=== PATIENT | male | born 1975 | race Caucasian/White ===

== ENCOUNTER 2017-08-25 21:18 | Emergency (ER) | payer BC ==
[~2017-08-25] VITALS: Ht 182.9 cm; Wt 105.3 kg
[2017-08-25 21:28] VITALS: Ht 182.9 cm; Wt 105.3 kg
[2017-08-25 23:01] VITALS: BP 130/80
== END 2017-08-25 23:01 | disposition home or self-care (01) ==
LOC: ED 21:18
DX: S61.011A Laceration without foreign body of right thumb without damage to nail, initial encounter (principal); W26.0XXA Contact with knife, initial encounter; Y92.000 Kitchen of unspecified non-institutional (private) residence as the place of occurrence of the external cause
CPT/HCPCS: J2001

== ENCOUNTER 2017-09-18 01:17 | Emergency (ER) | payer BC ==
[~2017-09-18] VITALS: Ht 182.9 cm; Wt 104.8 kg
[2017-09-18 02:41] LABS: CALCIUM 8.7 mg/dL (8.5-10.1); CARBON DIOXIDE 31.3 mmol/L (21-32); CHLORIDE SERUM 106 mmol/L (98-107); CREATININE SERUM 1.1 mg/dL (0.7-1.3); GFR1 > 60 mL/min; GLUCOSE SERUM 144 mg/dL (74-106); POTASSIUM SERUM 3.7 mmol/L (3.5-5.1); SODIUM SERUM 142 mmol/L (136-145)
[2017-09-18 02:46] LABS: ALBUMIN 3.9 g/dL (3.4-5.0); ALKALINE PHOSPHATASE 104 U/L (46-116); ALT/SGPT 29 U/L (16-63); AST/SGOT 19 U/L (15-37); BILIRUBIN TOTAL 0.2 mg/dL (0.20-1.00); TOTAL PROTEIN, SERUM 7.7 g/dL (6.4-8.2); URIC ACID 5.2 mg/dL (3.5-7.2)
[2017-09-18 02:47] LABS: BASOPHIL % 0.3 % (0-2); PLATELET COUNT 254 x10^3mcL (130-400); RED CELL DISTRIBUTION WIDTH 12.5 % (11.5-14.5)
[2017-09-18 04:41] VITALS: BP 130/74
== END 2017-09-18 04:41 | disposition home or self-care (01) ==
LOC: ED 01:17
PROVIDERS: Emergency Medicine
DX: N20.2 Calculus of kidney with calculus of ureter (principal); E86.0 Dehydration
CPT/HCPCS: J1885; Q0162